=== PATIENT | female | born 2000 | race African-American/Black ===

== ENCOUNTER 2022-06-12 21:10 | Emergency (ER) | payer OTHER ==
[~2022-06-12] VITALS: Ht 157.5 cm; Wt 59.4 kg
[2022-06-13 08:26] LABS: BASO % 0.9 % (0.0-1.0); EOS # 0.3 10^3/uL (0.0-0.5); EOS % 6.2 % (0.0-3.0); HEMATOCRIT 39.7 % (36.0-47.0); HEMOGLOBIN 13.1 g/dl (12.0-15.5); LYMPH # 2.6 10^3/uL (1.5-5.0); LYMPH % 55.5 % (24.0-44.0); MEAN CORPUSCULAR HEMOGLOBIN 30.3 pg (27.0-33.0); MEAN CORPUSCULAR VOLUME 91.9 fl (80.0-96.0); MONO # 0.3 10^3/uL (0.0-0.8); MONO % 6.6 % (2.0-8.0); NEUTROPHILS # 1.4 10^3/uL (1.5-8.5); NEUTROPHILS % 30.8 % (36.0-66.0); PLATELET COUNT, AUTOMATED 241 10^3/uL (150-450); RED BLOOD COUNT 4.32 10^6/uL (4.00-5.40); WHITE BLOOD COUNT 4.7 10^3/uL (4.0-10.0)
[2022-06-13 08:38] LABS: BLOOD UREA NITROGEN 10 MG/DL (9-23); C REACTIVE PROTEIN QUANTITATIV < 0.40 MG/DL (<1.0); CALCIUM LEVEL 8.9 MG/DL (8.5-10.1); CARBON DIOXIDE LEVEL 27 MMOL/L (20-31); CHLORIDE LEVEL 106 MMOL/L (98-107); CREATININE FOR GFR 0.56 MG/DL (0.55-1.30); GLOMERULAR FILTRATION RATE > 60.0 (>60); GLUCOSE, FASTING 77 MG/DL (60-100); POTASSIUM SERUM 3.9 MMOL/L (3.5-5.1); SODIUM LEVEL 142 MMOL/L (136-145)
[2022-06-13 08:55] LABS: ERYTHROCYTE SEDIMENTATION RATE 4 mm/hr (0-20)
[2022-06-13] MEDS ORDERED: PRED20TA PO (09:55)
[2022-06-13 10:14] VITALS: BP 157/84
== END 2022-06-13 10:16 | disposition home or self-care (01) ==
LOC: M ED 21:10
DX: R20.2 Paresthesia of skin (principal); F17.200 Nicotine dependence, unspecified, uncomplicated; Z79.52 Long term (current) use of systemic steroids